=== PATIENT | male | born 1965 | race Caucasian/White ===

== ENCOUNTER → 2021-06-26 | Outpatient (CLI) | payer OTHER | LOC: KOH-I 10:36 | DX: R10.811 Right upper quadrant abdominal tenderness (principal); K76.0 Fatty (change of) liver, not elsewhere classified | CPT/HCPCS: 76700 ==

== ENCOUNTER → 2021-07-26 | Outpatient (CLI) | payer OTHER | LOC: NM 13:00 | DX: R10.811 Right upper quadrant abdominal tenderness (principal); K21.9 Gastro-esophageal reflux disease without esophagitis; R14.0 Abdominal distension (gaseous) | CPT/HCPCS: 78227; A9537 ==